=== PATIENT | male | born 1995 | race Caucasian/White ===

== ENCOUNTER 2017-07-15 22:56 | Emergency (ER) | payer SELFPAY | END 2017-07-15 23:59 | disposition home or self-care (01) | LOC: SCSER 22:56 | DX: B34.9 Viral infection, unspecified (principal) | CPT/HCPCS: 99284 ==

== ENCOUNTER 2024-02-01 01:17 | Emergency (ER) | payer SELFPAY | END 2024-02-01 04:12 | disposition home or self-care (01) | LOC: ERS 01:17 | DX: S22.31XA Fracture of one rib, right side, initial encounter for closed fracture (principal); F17.220 Nicotine dependence, chewing tobacco, uncomplicated; X58.XXXA Exposure to other specified factors, initial encounter; Y93.01 Activity, walking, marching and hiking | CPT/HCPCS: 71045; 71250; 96374; J1885 ==